=== PATIENT | female | born 1950 | race Caucasian/White ===

== ENCOUNTER 2024-03-19 17:59 | Inpatient (IN) | payer MEDICARE ==
[~2024-03-19] VITALS: Ht 157.5 cm; Wt 44.5 kg
[2024-03-19] MEDS ORDERED: LAMO25TA5 PO (18:30)
[2024-03-19] MEDS ORDERED: LORA-258 PO (18:30)
[2024-03-19] MEDS ORDERED: MAGNESIUM HYDROXIDE 30 ML UDC PO PRN (19:00)
[2024-03-19] MEDS ORDERED: TEMAZEPAM 7.5 MG CAPSULE PO PRN (19:00)
[2024-03-19] MEDS ORDERED: MAG HYDROX/AL HYDROX/SIMETH 30 ML UDC PO PRN (19:00)
[2024-03-19] MEDS ORDERED: ACETAMINOPHEN 325 MG TABLET PO PRN (19:00)
[2024-03-19 19:10] VITALS: BP 146/80; TEMP 98.6; O2SAT 96
[2024-03-19] MEDS: BLOOD SUGAR DIAGNOSTIC 1 EACH STRIP IN ONE (19:32)
[2024-03-19 20:00] VITALS: BP 124/73; TEMP 98.1; O2SAT 99
[2024-03-19] MEDS ORDERED: CARB1TAB21 PO (20:27)
[2024-03-19] MEDS ORDERED: PIMA34CA PO (20:28)
[2024-03-19] MEDS ORDERED: MIRT-119 PO (20:29)
[2024-03-19] MEDS ORDERED: DICY10CA37 MT (20:31)
[2024-03-19] MEDS ORDERED: DICYCLOMINE HCL 10 MG CAPSULE PO PRN (21:00)
[2024-03-19] MEDS: clonazePAM 0.5 MG TABLET PO PRN (22:29)
[2024-03-20 07:54] LABS: ALANINE AMINOTRANSFERASE 10 U/L (12-78); ALBUMIN 2.9 g/dL (3.4-5.0); ALKALINE PHOSPHATASE 50 U/L (46-116); ASPARTATE AMINOTRANSFERASE 10 U/L (15-37); BILIRUBIN,TOTAL 0.8 mg/dL (0.2-1.0); CALCIUM, SERUM 7.9 mg/dL (8.5-10.1); CARBON DIOXIDE 26 mmol/L (21-32); CHLORIDE 104 mmol/L (98-107); CREATININE 0.7 mg/dL (0.6-1.3); GLUCOSE 98 mg/dL (74-106); POTASSIUM 3.2 mmol/L (3.5-5.1); SODIUM SERUM 139 mmol/L (136-145); TOTAL PROTEIN, SERUM 5.5 g/dL (6.4-8.2); UREA NITROGEN, BLOOD 12 mg/dL (7-18)
[2024-03-20 07:56] LABS: CREATININE 0.6 mg/dL (0.6-1.3)
[2024-03-20 08:00] VITALS: BP 114/71; TEMP 98; O2SAT 95
[2024-03-20] MEDS: MIRTAZAPINE 15 MG TABLET PO SCH (08:00)
[2024-03-20 08:30] LABS: CHOLESTEROL 112 mg/dL (<200); HDL CHOLESTEROL 62 mg/dL (40-60); LDL 39 mg/dL (0-99); TRIGLYCERIDES 46 mg/dL (30-150)
[2024-03-20] MEDS: CARBIDOPA/LEVODOPA 25/100 MG 1 UDTAB PO SCH (08:52)
[2024-03-20] MEDS: SERTRALINE HCL 50 MG TABLET PO SCH (08:52)
[2024-03-20] MEDS: LamoTRIgine 25 MG TABLET PO SCH (08:52)
[2024-03-20] MEDS ORDERED: LamoTRIgine 25 MG TABLET PO SCH (09:00)
[2024-03-20] MEDS ORDERED: MIRTAZAPINE PO SCH (09:00)
[2024-03-20] MEDS ORDERED: PIMAVANSERIN TARTRATE PO SCH (09:00)
[2024-03-20] MEDS ORDERED: LORAZEPAM 0.5 MG TABLET PO SCH (09:00)
[2024-03-20] MEDS: POTASSIUM CHLORIDE 20 MEQ TAB.PRT.SR PO ONE (13:25)
[2024-03-20 16:00] VITALS: BP 126/84; TEMP 98.4; O2SAT 97
[2024-03-20] MEDS: ENSURE ENLIVE CHOC 237 ML CAN PO SCH (17:12)
[2024-03-20 20:32] VITALS: BP 124/75; TEMP 97.9; O2SAT 96
[2024-03-21 08:00] VITALS: BP 125/73; TEMP 98.6; O2SAT 98
[2024-03-21 16:00] VITALS: BP 140/83; TEMP 97.9; O2SAT 98
[2024-03-21 20:00] VITALS: BP 122/82; TEMP 98; O2SAT 97
[2024-03-22 08:00] VITALS: BP 117/68; TEMP 97.9; O2SAT 98
[2024-03-22 16:00] VITALS: BP 150/84; TEMP 97.9; O2SAT 98
[2024-03-22 20:34] VITALS: BP 98/68; TEMP 98.1; O2SAT 96
[2024-03-22] MEDS: FLUVOXAMINE MALEATE 50 MG TABLET PO SCH (21:23)
[2024-03-22] MEDS: QUETIAPINE FUMARATE 100 MG TABLET PO SCH (21:23)
[2024-03-22] MEDS: ONDANSETRON 4 MG TAB.RAPDIS PO PRN (21:27)
[2024-03-23 08:00] VITALS: BP 112/75; TEMP 97.9; O2SAT 98
[2024-03-23] MEDS: LamoTRIgine 25 MG TABLET PO SCH (08:43)
[2024-03-23] MEDS: LamoTRIgine 100 MG TABLET PO SCH (08:43)
[2024-03-23 16:00] VITALS: BP 130/79; TEMP 98.7; O2SAT 96
[2024-03-23 18:47] LABS: APPEARANCE,URINE CLEAR (CLEAR); BILIRUBIN,URINE NEGATIVE (NEGATIVE); BLOOD, URINE NEGATIVE Ery/uL (NEGATIVE); COLOR,URINE YELLOW (YELLOW); KETONES,URINE NEGATIVE (NEGATIVE); LEUKOCYTE ESTERASE ,URINE TRACE (NEGATIVE); NITRITE, URINE NEGATIVE (NEGATIVE); PROTEIN,URINE NEGATIVE (NEGATIVE); UGLUCOSE NEGATIVE (NEGATIVE)
[2024-03-23 19:24] LABS: ADD URINE CULTURE YES; BACTERIA,URINE 1+ /HPF (None Seen); RBC,URINE 0-2 /HPF (0-2); SQUAMOUS EPITHELIAL CELL,UR Few /HPF (None Seen)
[2024-03-23 19:25] LABS: CALCIUM OXALATE CRYSTALS,UR Few /HPF (None Seen)
[2024-03-23 20:33] VITALS: BP 117/80; TEMP 98; O2SAT 97
[2024-03-23] MEDS: FLUVOXAMINE MALEATE 50 MG TABLET PO SCH (21:15)
[2024-03-24 08:00] VITALS: BP 128/72; TEMP 97.9; O2SAT 98
[2024-03-24 13:06] LABS: CALCIUM, SERUM 8.9 mg/dL (8.5-10.1); CARBON DIOXIDE 31 mmol/L (21-32); CHLORIDE 103 mmol/L (98-107); CREATININE 0.7 mg/dL (0.6-1.3); GLUCOSE 120 mg/dL (74-106); MAGNESIUM 2.6 mg/dL (1.8-2.4); POTASSIUM 3.8 mmol/L (3.5-5.1); SODIUM SERUM 142 mmol/L (136-145); UREA NITROGEN, BLOOD 19 mg/dL (7-18)
[2024-03-24 13:22] LABS: BASOPHILS % (AUTO) 0.2 % (0.0-2.0); EOSINOPHILS % (AUTO) 0.4 % (0.0-6.0); HEMATOCRIT 38 % (33-45); HEMOGLOBIN 13.4 g/dL (11.5-14.8); LYMPHOCYTES # (AUTO) 1.4 K/uL (0.8-4.8); LYMPHOCYTES % (AUTO) 24.2 % (20.0-44.0); MEAN CORPUSCULAR HEMOGLOBIN 32 PG (26.0-33.0); MEAN CORPUSCULAR HGB CONC 35 g/dl (31.0-36.0); MEAN CORPUSCULAR VOLUME 89 fL (82-100); MONOCYTES # (AUTO) 0.3 K/uL (0.1-1.30); MONOCYTES % (AUTO) 5.6 % (2.0-12.0); NEUTROPHILS # (AUTO) 4.1 K/uL (1.8-8.9); NEUTROPHILS % (AUTO) 69.6 % (43.0-81.0); PLATELET COUNT (AUTO) 175 K/uL (150-450); RED BLOOD CELL COUNT(AUTO) 4.26 MIL/uL (4.0-5.2); RED CELL DISTRIBUTION WIDTH 13.1 % (11.5-15.0); WHITE BLOOD COUNT (AUTO) 5.8 K/uL (4.3-11.0)
[2024-03-24 16:00] VITALS: BP 130/77; TEMP 98; O2SAT 98
[2024-03-24 20:00] VITALS: BP 118/77; TEMP 97.6; O2SAT 96
[2024-03-25 08:00] VITALS: BP 139/89; TEMP 97.9; O2SAT 94
[2024-03-25 16:00] VITALS: BP 112/72; TEMP 97.8; O2SAT 100
[2024-03-25 22:25] VITALS: BP 119/70; TEMP 98; O2SAT 99
[2024-03-26 08:00] VITALS: BP 115/76; TEMP 97.8; O2SAT 95
[2024-03-26] MEDS: GUAIFENESIN/D-METHORPHAN HB 5 ML UDC PO PRN (11:27)
[2024-03-26 16:16] VITALS: BP 119/77; TEMP 98.1; O2SAT 99
[2024-03-26 20:00] VITALS: BP 130/78; TEMP 97.8; O2SAT 96
[2024-03-27 08:00] VITALS: BP 145/76; TEMP 97.9; O2SAT 95
[2024-03-27 16:04] VITALS: BP 136/76; TEMP 98.4; O2SAT 97
[2024-03-27 20:29] VITALS: BP 146/86; TEMP 98.4; O2SAT 97
[2024-03-28 08:00] VITALS: BP 104/67; TEMP 97.8; O2SAT 100
[2024-03-28 16:00] VITALS: BP 128/74; TEMP 97.7; O2SAT 98
[2024-03-28] MEDS: FLUVOXAMINE MALEATE 50 MG TABLET PO SCH (21:14)
[2024-03-28] MEDS: QUETIAPINE FUMARATE 100 MG TABLET PO SCH (21:14)
[2024-03-28] MEDS: MIRTAZAPINE 15 MG TABLET PO SCH (21:15)
[2024-03-28 21:19] VITALS: BP 116/68; TEMP 98.2; O2SAT 97
[2024-03-29 08:00] VITALS: BP 119/54; TEMP 98.6; O2SAT 95
[2024-03-29] MEDS ORDERED: FLUVOXAMINE MALEATE 50 MG TABLET PO SCH (13:30)
[2024-03-29 16:00] VITALS: BP 117/69; TEMP 98.6; O2SAT 98
[2024-03-29 21:10] VITALS: BP 109/60; TEMP 99; O2SAT 98
[2024-03-29] MEDS: FLUVOXAMINE MALEATE 50 MG TABLET PO SCH (21:14)
[2024-03-30 08:00] VITALS: BP 137/89; TEMP 97.9; O2SAT 98
[2024-03-30 16:00] VITALS: BP 140/75; TEMP 97.9; O2SAT 98
[2024-03-30 20:00] VITALS: BP 121/56; TEMP 98; O2SAT 99
[2024-03-31 08:00] VITALS: BP 143/79; TEMP 98.2; O2SAT 97
[2024-03-31 16:00] VITALS: BP 113/76; TEMP 97.9; O2SAT 96
[2024-03-31 20:00] VITALS: BP 141/77; TEMP 98.7; O2SAT 97
[2024-04-01 08:00] VITALS: BP 149/80; TEMP 98.1; O2SAT 94
== END 2024-04-01 13:25 | disposition home or self-care (01) | DRG 951 ==
LOC: GPS 18:03
PROVIDERS: ADMIT Nurse Practitioner Psychiatric/Mental Health; ATTEND Internal Medicine
DX: Z91.51 Personal history of suicidal behavior (principal); F33.2 Major depressive disorder, recurrent severe without psychotic features; N39.0 Urinary tract infection, site not specified; R45.851 Suicidal ideations; F29 Unspecified psychosis not due to a substance or known physiological condition; F41.9 Anxiety disorder, unspecified; Z73.6 Limitation of activities due to disability; G20.A1 Parkinson's disease without dyskinesia, without mention of fluctuations; M81.0 Age-related osteoporosis without current pathological fracture; R56.9 Unspecified convulsions; Z79.899 Other long term (current) drug therapy; E03.9 Hypothyroidism, unspecified; F42.9 Obsessive-compulsive disorder, unspecified; F22 Delusional disorders; Z91.199 Patient's noncompliance with other medical treatment and regimen due to unspecified reason
CPT/HCPCS: 36415; 71045-TC; 80048-TC; 80053-TC; 80061-TC; 81001; 82565-TC; 83735-TC; 85025-TC; 87086-TC; Q0162